=== PATIENT | male | born 1955 | race Caucasian/White ===

== ENCOUNTER 2017-11-20 23:18 | Inpatient (IN) ==
--- NOTE | 2017-11-21 | Emergency Department Note ---
Disposition Clinical Impression: GI bleed, Partial small bowel obstruction, Diverticulitis Disposition: Admitted As Inpatient Condition: Fair General Adult HPI - General Chief complaint: ED GI Bleed Stated complaint: Bloody stool/cramps/abd pain Source: patient Limitations: no limitations Nursing Notes Reviewed: Yes Vital Signs Reviewed: Yes - History of Present Illness Pain Scale: 8 - Related Data Home Medications Medication Instructions Recorded Confirmed Metoprolol Succinate 25 mg PO DAILY 09/05/16 10/17/17 HYDROcodone/Acet 5/325 mg [[place] 1 tab PO Q6H PRN 07/18/17 10/17/17 5-325 mg] [place]-3 Fatty Acids [Fish Oil] 300 mg PO DAILY 07/18/17 10/17/17 Previous Rx's Medication Instructions Recorded Calcium Carbonate [Tums] 500 mg PO TID #90 tab.chew 09/07/15 Ferrous Sulfate [Iron] 1 tab PO DAILY #30 capsule.er 05/07/16 Docusate [Colace] 100 mg PO BID #60 capsule 07/02/16 Hydrocortisone Acetate [Anusol-Hc] 25 mg RC TID #20 supp.rect 07/05/16 Ascorbic Acid [Vitamin C] 500 mg PO DAILY #30 tablet 10/31/16 Cyanocobalamin (Vitamin B-12) 1,000 mcg PO DAILY #30 tablet 10/31/16 [Vitamin B12] Prochlorperazine Maleate 10 mg PO Q6HR PRN #30 tablet 10/31/16 [Compazine] Pantoprazole Sodium [Protonix] 1 tab PO DAILY #90 tablet. 01/21/17 Clotrimazole/Betamethasone Dip 45 gm TP TID #45 cream..g. 04/18/17 [Lotrisone Cream] Allergies Allergy/AdvReac Type Severity Reaction Status Date / Time Penicillins [PCN] Allergy Hives Verified 11/20/17 23:34 Past Medical History - Past Medical History Medical history: Reports: arthritis, cancer, GERD, hypertension Surgical history: Reports: other Psychiatric history: Reports: anxiety, depression - Social History Smoking Status: Never smoker Smokeless Tobacco Status: Yes Alcohol use: Reports: occasionally Drug use: Reports: none Physical Exam - General Limitations: no limitations General appearance: alert Course - Reevaluation(s) Reevaluation #1: Saw patient with Dr. Mathis. This is a 61 year-old male with history of HTN, multiple myeloma, GERD, and diverticulitis. He presents with bilateral lower abdominal pain for the past 3 days and painless rectal bleeding today, associated with nausea and several episodes of nondescript emesis. He has had rectal bleeding in the past due to hemorrhoids, but this seems different. On exam, patient is alert, comfortable-appearing, tachy, BP stable. Mild bilateral lower abdominal tenderness, L>R. DDx includes diverticulitis with bleed, colitis. Less likely appy, obstruction, UGIB. Partial labs: Leukocytosis, Hgb normal. Plan symptom control, PPI, CT abdomen, admit. Time: 00:56 Reevaluation #2: CT showed diverticulitis and ileus (vs. PSBO). Plan IV fluids, Cipro/Flagyl, discuss with surgery, admit to medicine. Time: 02:04 Vital Signs Temperature 97.5 F L 11/20/17 23:30 Pulse Rate 128 11/20/17 23:30 Respiratory Rate 20 11/20/17 23:30 Blood Pressure 110/82 11/20/17 23:30 O2 Sat by Pulse Oximetry 97 11/20/17 23:30 Temperature 97.5 F L 11/20/17 23:30 Pulse Rate 90 11/21/17 03:16 Respiratory Rate 18 11/21/17 05:16 Blood Pressure 113/79 11/21/17 05:16 O2 Sat by Pulse Oximetry 98 11/21/17 03:16 Oxygen Delivery Oxygen Delivery Room Air Medical Decision Making - Lab Data Lab results reviewed: Yes I reviewed the patient's lab results. Result diagrams: 11/20/17 23:52 11/20/17 23:52 Lab Results 11/20/17 11/20/17 11/20/17 Range/Units 23:52 23:52 23:52 WBC 13.2 H (4.3-11.1) K/mcL RBC 5.04 (4.19-5.50) M/mcL Hgb 15.8 (12.9-16.9) g/dL Hct 46.6 (37.5-50.1) % MCV 92.5 (83.0-100.0) fL MCH 31.3 (28.0-33.3) pg MCHC 33.9 (31.6-35.5) g/dL RDW 12.7 (11.5-14.5) % Plt Count 378 (140-400) K/mcL MPV 10.2 (9.4-12.4) fL Immature Gran % 0.3 (0-4) % Seg Neutrophils % 84.9 % Lymphocytes % 7.4 % Monocytes % 7.2 % Eosinophils % 0.0 % Basophils % 0.2 % Neutrophils # 11.2 H (1.6-8.9) K/mcL Lymphocytes # 1.0 (0.6-4.6) K/mcL Monocytes # 1.0 (0.0-1.3) K/mcL Eosinophils # 0.0 (0.0-0.6) K/mcL Basophils # 0.0 (0.0-0.2) K/mcL PT 13.5 H (9.4-12.1) Seconds INR 1.2 APTT 28.9 (26.0-36.0) Seconds Sodium 136 (136-145) mEq/L Potassium 3.8 (3.5-5.1) mEq/L Chloride 98 (98-107) mEq/L Carbon Dioxide 25 (23-29) mEq/L BUN 21 (8-23) mg/dL Creatinine 1.16 (0.70-1.30) mg/dL Est GFR ( Amer) > 60 (> 60) Est GFR (Non-Af Amer) > 60 (> 60) BUN/Creatinine Ratio 18 (6-26) Glucose 156 H (70-105) mg/dL Calculated Osmolality 288 (280-300) Lactic Acid (0.5-2.2) mmol/L Calcium 9.2 (8.6-10.3) mg/dL Total Bilirubin 0.8 (0.3-1.0) mg/dL AST 17 (13-39) Units/L ALT 15 (7-52) Units/L Alkaline Phosphatase 104 (34-104) Units/L Serum Total Protein 9.1 H (6.4-8.9) g/dL Albumin 3.8 (3.5-5.7) g/dL Globulin 5.3 H (2.4-3.5) g/dL Albumin/Globulin Ratio 0.7 L (1.1-2.2) Blood Type Antibody Screen 11/20/17 11/21/17 Range/Units 23:52 02:52 WBC (4.3-11.1) K/mcL RBC (4.19-5.50) M/mcL Hgb (12.9-16.9) g/dL Hct (37.5-50.1) % MCV (83.0-100.0) fL MCH (28.0-33.3) pg MCHC (31.6-35.5) g/dL RDW (11.5-14.5) % Plt Count (140-400) K/mcL MPV (9.4-12.4) fL Immature Gran % (0-4) % Seg Neutrophils % % Lymphocytes % % Monocytes % % Eosinophils % % Basophils % % Neutrophils # (1.6-8.9) K/mcL Lymphocytes # (0.6-4.6) K/mcL Monocytes # (0.0-1.3) K/mcL Eosinophils # (0.0-0.6) K/mcL Basophils # (0.0-0.2) K/mcL PT (9.4-12.1) Seconds INR APTT (26.0-36.0) Seconds Sodium (136-145) mEq/L Potassium (3.5-5.1) mEq/L Chloride (98-107) mEq/L Carbon Dioxide (23-29) mEq/L BUN (8-23) mg/dL Creatinine (0.70-1.30) mg/dL Est GFR ( Amer) (> 60) Est GFR (Non-Af Amer) (> 60) BUN/Creatinine Ratio (6-26) Glucose (70-105) mg/dL Calculated Osmolality (280-300) Lactic Acid 1.0 (0.5-2.2) mmol/L Calcium (8.6-10.3) mg/dL Total Bilirubin (0.3-1.0) mg/dL AST (13-39) Units/L ALT (7-52) Units/L Alkaline Phosphatase (34-104) Units/L Serum Total Protein (6.4-8.9) g/dL Albumin (3.5-5.7) g/dL Globulin (2.4-3.5) g/dL Albumin/Globulin Ratio (1.1-2.2) Blood Type O POSITIVE Antibody Screen NEGATIVE - Radiology Data Radiology results reviewed: Yes I reviewed the patient's radiology results. CT abd/pelvis IMPRESSION: 1. Sigmoid diverticulitis. 2. Enteritis with ileus or partial small bowel obstruction. 3. Urinary bladder wall thickening may be due to cystitis or outlet obstruction. - EKG Data EKG #1 EKG attestation: Yes I reviewed and interpreted this EKG. EKG results narrative: 23:48 - ST at 115.
[2017-11-21 00:13] LABS: Basophils % 0.2 %; Hematocrit 46.6 % (37.5-50.1); Hemoglobin 15.8 g/dL (12.9-16.9); Immature Granulocytes % 0.3 % (0-4); Lymphocytes % 7.4 %; Mean Corpuscular HGB Conc 33.9 g/dL (31.6-35.5); Mean Corpuscular Hemoglobin 31.3 pg (28.0-33.3); Mean Corpuscular Volume 92.5 fL (83.0-100.0); Mean Platelet Volume 10.2 fL (9.4-12.4); Monocytes % 7.2 %; Neutrophils # 11.2 K/mcL (1.6-8.9); Platelet Count 378 K/mcL (140-400); Red Blood Count 5.04 M/mcL (4.19-5.50); Red Cell Distribution Width 12.7 % (11.5-14.5); Segmented Neutrophils % 84.9 %
[2017-11-21 00:19] LABS: INR 1.2; Prothrombin Time 13.5 Seconds (9.4-12.1)
[2017-11-21 00:21] LABS: Activated Partial Thrombo Time 28.9 Seconds (26.0-36.0)
[2017-11-21] MEDS ORDERED: 0.9 % Sodium Chloride 1,000 ML IVC ONE ×2 (00:31→02:04)
[2017-11-21 00:33] LABS: Alanine Aminotransferase 15 Units/L (7-52); Albumin 3.8 g/dL (3.5-5.7); Albumin/Globulin Ratio 0.7 (1.1-2.2); Alkaline Phosphatase 104 Units/L (34-104); Aspartate Amino Transferase 17 Units/L (13-39); BUN/Creatinine Ratio 18 (6-26); Bilirubin,Total 0.8 mg/dL (0.3-1.0); Blood Urea Nitrogen 21 mg/dL (8-23); Calcium 9.2 mg/dL (8.6-10.3); Carbon Dioxide 25 mEq/L (23-29); Chloride 98 mEq/L (98-107); Globulin 5.3 g/dL (2.4-3.5); Glucose 156 mg/dL (70-105); Osmolality,Calculated 288 (280-300); Potassium 3.8 mEq/L (3.5-5.1); Sodium 136 mEq/L (136-145); Total Protein 9.1 g/dL (6.4-8.9); eGFR For African Americans > 60 (> 60); eGFR For Non-African Americans > 60 (> 60)
[2017-11-21] MEDS ORDERED: Pantoprazole 40 MG VIAL IVP ONE (00:42)
[2017-11-21] MEDS ORDERED: *HR* FentaNYL (PF) 100 MCG/2 ML VIAL IVP ONE ×3 (00:42→03:37)
[2017-11-21] MEDS ORDERED: Ondansetron 4 MG/2 ML VIAL IVP PRN (01:00)
--- NOTE | 2017-11-21 01:00 | Emergency Department Note ---
Disposition Clinical Impression: Partial small bowel obstruction, Diverticulitis GI bleed Qualifiers: GI bleed type/associated pathology: unspecified gastrointestinal hemorrhage type Qualified Code(s): K92.2 - Gastrointestinal hemorrhage, unspecified Abdominal pain Qualifiers: Abdominal location: lower abdomen, unspecified Qualified Code(s): R10.30 - Lower abdominal pain, unspecified Nausea & vomiting Qualifiers: Vomiting type: bilious vomiting Qualified Code(s): R11.14 - Bilious vomiting Disposition: Admitted As Inpatient Condition: Fair Referrals: NONE,PCP [Primary Care Provider] - Forms: ED Satisfaction Letter Time of Disposition: 05:41 GI Bleed HPI - General Chief complaint: ED GI Bleed Stated complaint: Bloody stool/cramps/abd pain Time Seen by Provider: 11/21/17 00:30 Source: patient Limitations: no limitations Nursing Notes Reviewed: Yes Vital Signs Reviewed: Yes - History of Present Illness HPI Narrative: 61-year-old male complains of abdominal pain and rectal bleeding that started 3 days ago. Patient states his abdominal pain from 9/10 constant across lower abdomen. Patient states he has had pain all over his abdomen is some point in time or another over the past 3 days. Patient describes sensing the need for bowel movement but sat on the toilet and nothing but bright red blood that was painless came out of his rectum. He states the bleeding stopped on its own. He has had intermittent episodes of hematochezia since initial onset. - Related Data Home Medications Medication Instructions Recorded Confirmed Metoprolol Succinate 25 mg PO DAILY 09/05/16 10/17/17 HYDROcodone/Acet 5/325 mg [[place] 1 tab PO Q6H PRN 07/18/17 10/17/17 5-325 mg] [place]-3 Fatty Acids [Fish Oil] 300 mg PO DAILY 07/18/17 10/17/17 Previous Rx's Medication Instructions Recorded Calcium Carbonate [Tums] 500 mg PO TID #90 tab.chew 09/07/15 Ferrous Sulfate [Iron] 1 tab PO DAILY #30 capsule.er 05/07/16 Docusate [Colace] 100 mg PO BID #60 capsule 07/02/16 Hydrocortisone Acetate [Anusol-Hc] 25 mg RC TID #20 supp.rect 07/05/16 Ascorbic Acid [Vitamin C] 500 mg PO DAILY #30 tablet 03/16/17 Cyanocobalamin (Vitamin B-12) 1,000 mcg PO DAILY #30 tablet 10/31/16 [Vitamin B12] Prochlorperazine Maleate 10 mg PO Q6HR PRN #30 tablet 10/31/16 [Compazine] Pantoprazole Sodium [Protonix] 1 tab PO DAILY #90 tablet. 01/21/17 Clotrimazole/Betamethasone Dip 45 gm TP TID #45 cream..g. 04/18/17 [Lotrisone Cream] Allergies Allergy/AdvReac Type Severity Reaction Status Date / Time Penicillins [PCN] Allergy Hives Verified 11/20/17 23:34 All systems ED: reviewed and negative except as stated. Review of Systems: As Per HPI Constitutional: Denies: fever, chills, weakness Cardiovascular: Denies: chest pain Respiratory: Denies: cough, dyspnea Gastrointestinal: Reports: abdominal pain, nausea, vomiting. Denies: diarrhea Neurological: Denies: weakness Endocrine: Denies: fatigue Past Medical History - Past Medical History Attestation: Yes The following information was validated with the patient. Source: patient, nursing notes reviewed Medical history: Reports: arthritis, cancer, GERD, hypertension Surgical history: Reports: other Psychiatric history: Reports: anxiety, depression - Social History Smoking Status: Never smoker Smokeless Tobacco Status: Yes Alcohol use: Reports: occasionally Drug use: Reports: none Physical Exam Vital Signs Temperature 97.5 F L 11/20/17 23:30 Pulse Rate 128 11/20/17 23:30 Respiratory Rate 20 11/20/17 23:30 Blood Pressure 110/82 11/20/17 23:30 O2 Sat by Pulse Oximetry 97 11/20/17 23:30 Temperature 97.5 F L 11/20/17 23:30 Pulse Rate 100 11/21/17 00:53 Respiratory Rate 18 11/21/17 00:53 Blood Pressure 112/79 11/21/17 00:53 O2 Sat by Pulse Oximetry 95 11/21/17 00:53 Oxygen Delivery Oxygen Delivery Room Air CONSTITUTIONAL: Well-appearing; well-nourished; A&O X 3, in no apparent distress. HEAD: Normocephalic; atraumatic EYES: PERRL, no scleral icterus NOSE: The nose is normal in appearance without rhinorrhea NECK: No JVD or distended neck veins RESP: Normal chest excursion with respiration; breath sounds clear and equal bilaterally; no wheezes, rhonchi, or rales CARD: Regular rhythm, without murmurs, rub or gallop ABD: Mildly distended abdomen but not rigid, tender to palpation across the left lower suprapubic and right lower quadrant. No rebound tenderness, no Rovsing. Hypoactive bowel sounds present. No ecchymosis, no flank bruising. CHEST: No pain with palpation SKIN: Normal for age and race; warm and dry without diaphoresis ; no apparent lesions EXTREMITIES: Pulses are 2 plus and equal times 4 extremities, no peripheral edema or calf muscle pain - General Limitations: no limitations General appearance: alert Course - Reevaluation(s) Reevaluation #1: Hemoccult blood tests positive Time: 00:58 Reevaluation #2: 3 dose of fentanyl for pain, started patient on Cipro and Flagyl. NG tube ordered Time: 02:12 - Consultations Consultation #1: Dr. Jeong of Gen. surgery is on board for if any complications arise during patient's and patient's treatment. Time: 02:20 Vital Signs Temperature 97.5 F L 11/20/17 23:30 Pulse Rate 128 11/20/17 23:30 Respiratory Rate 20 11/20/17 23:30 Blood Pressure 110/82 11/20/17 23:30 O2 Sat by Pulse Oximetry 97 11/20/17 23:30 Temperature 97.5 F L 11/20/17 23:30 Pulse Rate 100 11/21/17 00:53 Respiratory Rate 18 11/21/17 00:53 Blood Pressure 112/79 11/21/17 00:53 O2 Sat by Pulse Oximetry 95 11/21/17 00:53 Oxygen Delivery Oxygen Delivery Room Air GI Bleed - [facility] Narrative Medical decision making narrative: Patient abdominal pain and hematochezia along with nausea and vomiting with copious belching presents with concern for possible bowel obstruction, diverticulitis versus diverticulosis with pain this rectal bleeding also has associated abdominal pain across the lower abdomen. Infectious colitis also a concern. Hemoccult test was positive for gross blood on rectal exam. External and internal hemorrhoids present. External hemorrhoid shows no active bleeding. Patient started on IV normal saline, Protonix 80 mg IV, 80 mg fentanyl IV for pain and 4 mg Zofran IV for nausea. Patient placed nothing by mouth. CT abdomen and pelvis with IV contrast was positive for diverticulitis and associated partial small bowel obstruction. Patient started on 400 mg Cipro IV and 500 mg IV Flagyl. Patient understands and agrees to treatment plan for admission. Dr. Jeong of Gen. surgery consult and is aware of patient's admission to medicine. Dr. Quinonez the hospitalist as accepted patient for admission for continued evaluation and treatment. - Lab Data Lab results reviewed: Yes I reviewed the patient's lab results. Lab results narrative: Short CBC 11/20/17 Range/Units 23:52 WBC 13.2 H (4.3-11.1) K/mcL Hgb 15.8 (12.9-16.9) g/dL Hct 46.6 (37.5-50.1) % Plt Count 378 (140-400) K/mcL Neutrophils # 11.2 H (1.6-8.9) K/mcL BMP 11/20/17 Range/Units 23:52 Sodium 136 (136-145) mEq/L Potassium 3.8 (3.5-5.1) mEq/L Chloride 98 (98-107) mEq/L Carbon Dioxide 25 (23-29) mEq/L BUN 21 (8-23) mg/dL Creatinine 1.16 (0.70-1.30) mg/dL Glucose 156 H (70-105) mg/dL Calcium 9.2 (8.6-10.3) mg/dL Liver Function 11/20/17 Range/Units 23:52 Total Bilirubin 0.8 (0.3-1.0) mg/dL AST 17 (13-39) Units/L ALT 15 (7-52) Units/L Alkaline Phosphatase 104 (34-104) Units/L Albumin 3.8 (3.5-5.7) g/dL Result diagrams: 11/20/17 23:52 11/20/17 23:52 Lab Results 11/20/17 11/20/17 11/20/17 Range/Units 23:52 23:52 23:52 WBC 13.2 H (4.3-11.1) K/mcL RBC 5.04 (4.19-5.50) M/mcL Hgb 15.8 (12.9-16.9) g/dL Hct 46.6 (37.5-50.1) % MCV 92.5 (83.0-100.0) fL MCH 31.3 (28.0-33.3) pg MCHC 33.9 (31.6-35.5) g/dL RDW 12.7 (11.5-14.5) % Plt Count 378 (140-400) K/mcL MPV 10.2 (9.4-12.4) fL Immature Gran % 0.3 (0-4) % Seg Neutrophils % 84.9 % Lymphocytes % 7.4 % Monocytes % 7.2 % Eosinophils % 0.0 % Basophils % 0.2 % Neutrophils # 11.2 H (1.6-8.9) K/mcL Lymphocytes # 1.0 (0.6-4.6) K/mcL Monocytes # 1.0 (0.0-1.3) K/mcL Eosinophils # 0.0 (0.0-0.6) K/mcL Basophils # 0.0 (0.0-0.2) K/mcL PT 13.5 H (9.4-12.1) Seconds INR 1.2 APTT 28.9 (26.0-36.0) Seconds Sodium 136 (136-145) mEq/L Potassium 3.8 (3.5-5.1) mEq/L Chloride 98 (98-107) mEq/L Carbon Dioxide 25 (23-29) mEq/L BUN 21 (8-23) mg/dL Creatinine 1.16 (0.70-1.30) mg/dL Est GFR ( Amer) > 60 (> 60) Est GFR (Non-Af Amer) > 60 (> 60) BUN/Creatinine Ratio 18 (6-26) Glucose 156 H (70-105) mg/dL Calculated Osmolality 288 (280-300) Calcium 9.2 (8.6-10.3) mg/dL Total Bilirubin 0.8 (0.3-1.0) mg/dL AST 17 (13-39) Units/L ALT 15 (7-52) Units/L Alkaline Phosphatase 104 (34-104) Units/L Serum Total Protein 9.1 H (6.4-8.9) g/dL Albumin 3.8 (3.5-5.7) g/dL Globulin 5.3 H (2.4-3.5) g/dL Albumin/Globulin Ratio 0.7 L (1.1-2.2) Blood Type Antibody Screen 11/20/17 Range/Units 23:52 WBC (4.3-11.1) K/mcL RBC (4.19-5.50) M/mcL Hgb (12.9-16.9) g/dL Hct (37.5-50.1) % MCV (83.0-100.0) fL MCH (28.0-33.3) pg MCHC (31.6-35.5) g/dL RDW (11.5-14.5) % Plt Count (140-400) K/mcL MPV (9.4-12.4) fL Immature Gran % (0-4) % Seg Neutrophils % % Lymphocytes % % Monocytes % % Eosinophils % % Basophils % % Neutrophils # (1.6-8.9) K/mcL Lymphocytes # (0.6-4.6) K/mcL Monocytes # (0.0-1.3) K/mcL Eosinophils # (0.0-0.6) K/mcL Basophils # (0.0-0.2) K/mcL PT (9.4-12.1) Seconds INR APTT (26.0-36.0) Seconds Sodium (136-145) mEq/L Potassium (3.5-5.1) mEq/L Chloride (98-107) mEq/L Carbon Dioxide (23-29) mEq/L BUN (8-23) mg/dL Creatinine (0.70-1.30) mg/dL Est GFR ( Amer) (> 60) Est GFR (Non-Af Amer) (> 60) BUN/Creatinine Ratio (6-26) Glucose (70-105) mg/dL Calculated Osmolality (280-300) Calcium (8.6-10.3) mg/dL Total Bilirubin (0.3-1.0) mg/dL AST (13-39) Units/L ALT (7-52) Units/L Alkaline Phosphatase (34-104) Units/L Serum Total Protein (6.4-8.9) g/dL Albumin (3.5-5.7) g/dL Globulin (2.4-3.5) g/dL Albumin/Globulin Ratio (1.1-2.2) Blood Type O POSITIVE Antibody Screen NEGATIVE - Radiology Data Radiology results reviewed: Yes I reviewed the patient's radiology results. Abdomen/Pelvis CT 11/21/17 00:41 IMPRESSION: 1. Sigmoid diverticulitis. 2. Enteritis with ileus or partial small bowel obstruction. 3. Urinary bladder wall thickening may be due to cystitis or outlet obstruction. D/ / Ramón Patricia MD / Ramón Patricia MD Interpreting Provider: Ramón Patricia MD Chest X-Ray 11/21/17 00:41 IMPRESSION: Right basilar atelectasis or pneumonia. D/ / Ramón Patricia MD / Ramón Patricia MD Interpreting Provider: Ramón Patricia MD - EKG Data EKG attestation: Yes I reviewed and interpreted this EKG. EKG results narrative: EKG taken 11/20/2017 at 2348 hrs. shows sinus tachycardia at a rate of 1:15 beats minute with no acute ST elevations, but shows mild ST depression in lateral leads, no QRS widening. No change in compared to previous EKG taken 09/2015.
[2017-11-21] MEDS ORDERED: MetroNIDAZOLE 500 MG/100 ML 500 MG/100 ML BAG IVPB ONE (02:03)
[2017-11-21] MEDS ORDERED: Naloxone 0.4 MG/ML INJ IVP PRN (02:42)
--- NOTE | 2017-11-21 02:50 | Internal Med History&Physical ---
Date of Encounter: 11/21/17 Time of Encounter: 02:47 Internal Medicine - H&P: HPI Chief complaint: Abdominal pain Admitted From: Emergency Dept Plans for Post Hospital Care: Home History of present illness: Mr. Sidhu is a 61 year old male with history of HTN, multiple myeloma, GERD, and diverticulitis who presents with chief complaints of bilateral lower abdominal pain for the past 3 days . The patient is reports associated nausea and multiple episodes of vomiting. He last had by mouth yesterday morning and vomited. He reports bright red blood per rectum. He says since about Friday he was not able to pass gas however over the next few days he started having abdominal pain that felt like cramps in the lower abdomen and eventually spread to throughout the abdomen. He was able to have bowel movements that were small over the last couple days or so although with some blood. Denies any fever, chills, headache, blurry vision, chest pain, shortness of breath, urinary symptoms or neurological symptoms. Upon presentation he was noted to be tachycardic but sinus. Laboratory workup showed mild leukocytosis and mildly elevated creatinine above baseline. Lactic acid was normal. Imaging studies showed sigmoid diverticulitis as well as partial small bowel obstruction versus ileus. The patient was given IV fluids in the ED as well as Cipro and Flagyl before we were called to admit the patient Past Med Surg Social Fam HX - Past Medical History Medical history: arthritis, cancer, GERD, hypertension Psychiatric history: anxiety, depression - Past Surgical History Surgical History: other - Social History Smoking Status: Never smoker Smokeless Tobacco Status: Yes Alcohol use: occasionally Drug use: none - Family History Father Living Status: Hx Family Respiratory Disorders: Yes (smoker, pneumonia) Mother Living Status: Internal Medicine - H&P: Meds Calcium Carbonate [Tums] 500 mg PO TID #90 tab.chew 09/07/15 [Rx] Ferrous Sulfate [Iron] 1 tab PO DAILY #30 capsule.er 05/07/16 [Rx] Docusate [Colace] 100 mg PO BID #60 capsule 07/02/16 [Rx] Hydrocortisone Acetate [Anusol-Hc] 25 mg RC TID #20 supp.rect 07/05/16 [Rx] Metoprolol Succinate 25 mg PO DAILY 09/05/16 [History] Ascorbic Acid [Vitamin C] 500 mg PO DAILY #30 tablet 10/31/16 [Rx] Cyanocobalamin (Vitamin B-12) [Vitamin B12] 1,000 mcg PO DAILY #30 tablet [Rx] Prochlorperazine Maleate [Compazine] 10 mg PO Q6HR PRN #30 tablet 10/31/16 [Rx] Pantoprazole Sodium [Protonix] 1 tab PO DAILY #90 tablet. 01/21/17 [Rx] Clotrimazole/Betamethasone Dip [Lotrisone Cream] 45 gm TP TID #45 cream..g. 09/03 [Rx] HYDROcodone/Acet 5/325 mg [[place] 5-325 mg] 1 tab PO Q6H PRN 07/18/17 [History] [place]-3 Fatty Acids [Fish Oil] 300 mg PO DAILY 07/18/17 [History] 3 Allergy/AdvReac Type Severity Reaction Status Date / Time Penicillins [PCN] Allergy Hives Verified 11/20/17 23:34 All Systems PM: A 10-system review of systems was performed and is negative for pertinent findings except as documented above in the HPI. Review of systems: All systems reviewed are negative except for as mentioned above - Constitutional Vitals: Temp Pulse Resp BP Pulse Ox 97.5 F L 100 18 112/79 95 11/20/17 23:30 11/21/17 00:53 11/21/17 00:53 11/21/17 00:53 11/21/17 00:53 Exam: GEN: NAD HEENT: AT, NC, No cyanosis, oral mucosa is moist, No JVD Lymphatics: No lymphadenoapthy Eyes: Extrocular muscles intact, anicteric CVS:RRR. S1, S2, No m/r/g RESP: CTAB ABD: lower abdominal tenderness mostly appreciated on the left lower abdomen and right lower abdomen, distended, positive bowel sounds EXT: No edema, No rashes, 2+ DP NEURO: Nonfocal, CN II-XII intact, No focal motor or sensory deficits Psych: Cooperative, Not anxious or depressed Internal Med - H&P Results - Labs CBC & Chem 7: 11/20/17 23:52 11/20/17 23:52 Labs: Short CBC 11/20/17 Range/Units 23:52 WBC 13.2 H (4.3-11.1) K/mcL Hgb 15.8 (12.9-16.9) g/dL Hct 46.6 (37.5-50.1) % Plt Count 378 (140-400) K/mcL Neutrophils # 11.2 H (1.6-8.9) K/mcL BMP 11/20/17 23:52 Sodium 136 Potassium 3.8 Chloride 98 Carbon Dioxide 25 BUN 21 Creatinine 1.16 Glucose 156 H Calcium 9.2 Liver Function 11/20/17 Range/Units 23:52 Total Bilirubin 0.8 (0.3-1.0) mg/dL AST 17 (13-39) Units/L ALT 15 (7-52) Units/L Alkaline Phosphatase 104 (34-104) Units/L Albumin 3.8 (3.5-5.7) g/dL - Impressions ITS Impressions Abdomen/Pelvis CT 11/21/17 00:41 IMPRESSION: 1. Sigmoid diverticulitis. 2. Enteritis with ileus or partial small bowel obstruction. 3. Urinary bladder wall thickening may be due to cystitis or outlet obstruction. D/ / Ramón Patricia MD / Ramón Patricia MD Interpreting Provider: Ramón Patricia MD Chest X-Ray 11/21/17 00:41 IMPRESSION: Right basilar atelectasis or pneumonia. D/ / Ramón Patricia MD / Ramón Patricia MD Interpreting Provider: Ramón Patricia MD - Assessment and plan (1) Diverticulitis Current Visit: Yes Status: Acute Assessment and plan: symptomatic treatment. NPO. Anti-emetics. Cipro/flagyl. pain control. (2) JALYN (acute kidney injury) Current Visit: Yes Status: Acute Assessment and plan: Likely prerenal from fluid loss. Give IVF in ED. c/w NS 125cc/hr. labs in am. avoid nephrotoxins (3) Partial small bowel obstruction Current Visit: Yes Status: Acute Assessment and plan: No need for NGT for now. No active vomiting. Patient is passing stool. NPO. IVF. Anti-emetics. Gen surgery c/s in ED. Pain control (4) Hematochezia Current Visit: No Status: Acute Assessment and plan: Likely hemorrhoidal bleed. H/H stable. will monitor for now. Can't get colonoscopy now with acute diverticulitis. (5) Multiple myeloma Current Visit: No Status: Acute Assessment and plan: f/u with oncology. Qualifiers: Multiple myeloma remission status: unspecified Qualified Code(s): C90.00 - Multiple myeloma not having achieved remission (6) DVT prophylaxis Current Visit: Yes Status: Acute Assessment and plan: scds - Time Spent With Patient Total time spent is greater than 50% in coordination of care (as documented) at patient's floor/unit and/or counseling patient:
[2017-11-21] MEDS: *HR* Heparin 5,000 UNIT/ML VIAL SQ SCH ×3 (06:31→21:28)
[2017-11-21] MEDS: Pantoprazole 40 MG VIAL IVP SCH (06:35)
[2017-11-21] MEDS: Azithromycin 500 MG in D5% in Water 250 ML IVPB SCH (09:30)
[2017-11-21] MEDS: *HR* HYDROcodone/Acet 5/325 mg TABLET PO PRN ×2 (09:30→17:38)
[2017-11-21] MEDS: cefTRIAXone 1,000 MG in Water for inj. (sterile) 20 ML 10 ML IVP SCH (09:31)
[2017-11-21] MEDS: 0.9 % Sodium Chloride 1,000 ML IVC SCH ×3 (09:32→19:11)
--- NOTE | 2017-11-21 09:35 | General Surgery Consult Note ---
<Val Valle-My - Last Filed: 11/21/17 09:32> Date of Encounter: 11/21/17 Time of Encounter: 09:00 Assessment and Plan (1) Diverticulitis Current Visit: Yes Status: Acute Labs are unremarkable except for a leukocytosis with a white blood count of 13.2. Patient is afebrile and appears in no acute distress. CT of the abdomen and pelvis on 11/21/2017 showed sigmoid diverticulitis, enteritis with ileus or partial small bowel obstruction, and urinary bladder wall thickening may be due to cystitis or outlet obstruction. Chest x-ray showed Right basilar atelectasis or pneumonia. Plan: no surgical intervention at this time. Recommends continue IV fluids Recommends bowel rest Recommends the following IV antibiotics: Flagyl and ciprofloxacin Recommends interval colonoscopy within 6 to 8 weeks encourage IS use 10 times per hour supportive care and pain control out of the bed at least 3 times a day serial abdominal exams continue to monitor the patient closely History of Present Illness Consult date: 11/21/17 Reason for consult: other (Partial small bowel obstruction and diverticulitis) History of present illness: Mr. Sidhu is a 61 year old male with history of HTN, multiple myeloma, and diverticulitis who presented to the ED with chief complaints of bilateral lower abdominal pain for the past 3 days. The patient reports associated nausea, multiple episodes of vomiting, painless rectal bleeding due to his hemorrhoids, and bloody loose stools. The patient describes the bilateral abdominal pain as a constant and sharp pain that he rates 8 out of 10. He denies any radiation of the pain. The patient admits the abdominal pain feels like his previous diverticulitis. Surgery was consulted for further recommendations for his partial small bowel obstruction and diverticulitis. The patient still admits bilateral lower abdominal pain that he describes as intermittent and sharp. He rates the pain 8 out of 10 but denies any radiation. The patient admits passing flatus and his last bowel movement was right before my exam. He describes the bowel movement as loose stools with blood. Patient admit he has chills but no fevers. The patient states he had a colonoscopy and EGD completed within the last 2 years. Patient stated that he has Michael's esophagus on his EGD. Patient denies any surgical history. The patient denies any headaches, vision changes, near syncope, chest pain, shortness of breath, difficulty breathing, urinary symptoms, nausea, vomiting, and any weaknesses. Patient has no other concerns at this time. Past Med Surg Social Fam HX - Past Medical History Medical history: arthritis, cancer, GERD, hypertension Psychiatric history: anxiety, depression - Past Surgical History Surgical History: other - Social History Smoking Status: Never smoker Smokeless Tobacco Status: Yes Alcohol use: occasionally Drug use: none - Family History Father Living Status: Hx Family Respiratory Disorders: Yes Mother Living Status: Hx Family Respiratory Disorders: Yes Medications and Allergies Calcium Carbonate [Tums] 500 mg PO TID #90 tab.chew 09/07/15 [Rx] Metoprolol Succinate 25 mg PO DAILY 09/05/16 [History] Ascorbic Acid [Vitamin C] 500 mg PO DAILY #30 tablet 10/31/16 [Rx] Prochlorperazine Maleate [Compazine] 10 mg PO Q6HR PRN #30 tablet 10/31/16 [Rx] Pantoprazole Sodium [Protonix] 1 tab PO DAILY #90 tablet.dr 01/21/17 [Rx] HYDROcodone/Acet 5/325 mg [[place] 5-325 mg] 1 tab PO Q6H PRN 07/18/17 [History] [place]-3 Fatty Acids [Fish Oil] 300 mg PO DAILY 07/18/17 [History] Cyanocobalamin (Vitamin B-12) [Vitamin B12] 1,000 mcg PO Q48H 11/21/17 [History] Docusate [Colace] 100 mg PO BID PRN 11/21/17 [History] Ferrous Sulfate [Iron] 1 tab PO Q48H 11/21/17 [History] 3 Allergy/AdvReac Type Severity Reaction Status Date / Time Penicillins [PCN] Allergy Hives Verified 11/20/17 23:34 Review of Systems All systems PM: The remainder of the systems were reviewed and are negative - Constitutional as per HPI General Surgery Exam Initial Vital Signs Temp Pulse Resp BP Pulse Ox 97.5 F L 128 20 110/82 97 11/20/17 23:30 11/20/17 23:30 11/20/17 23:30 11/20/17 23:30 11/20/17 23:30 - General physical appearance well developed, well nourished, no distress - Eyes PERRL, normal ocular movement - ENT normal mucosa - Neck trachea midline - Respiratory normal expansion, normal respiratory effort, clear to auscultation - Cardiovascular Cardiovascular exam: Present: RRR, no murmurs/rubs/gallops - Abdomen Abdomen general surgery: Present: bowel sounds present, soft, tender ( Tenderness to palpation in the epigastric region). Absent: guarding, rebound, rigid Abdominal Tenderness: Present: epigastic - Integumentary Integumentary general surgery: Present: warm and dry - Neurologic Present: CN 2-12 grossly intact - Musculoskeletal Present: normal gait - Psychiatric Psychiatric general surgery: Present: A&Ox3, appropriate, speech is normal, memory intact Exam Initial Vital Signs Temp Pulse Resp BP Pulse Ox 97.5 F L 128 20 110/82 97 11/20/17 23:30 11/20/17 23:30 11/20/17 23:30 11/20/17 23:30 11/20/17 23:30 Results - Labs 11/20/17 23:52 11/20/17 23:52 Abnormal lab results WBC 13.2 K/mcL (4.3-11.1) H 11/20/17 23:52 Neutrophils # 11.2 K/mcL (1.6-8.9) H 11/20/17 23:52 PT 13.5 Seconds (9.4-12.1) H 11/20/17 23:52 Glucose 156 mg/dL (70-105) H 11/20/17 23:52 Serum Total Protein 9.1 g/dL (6.4-8.9) H 11/20/17 23:52 Globulin 5.3 g/dL (2.4-3.5) H 11/20/17 23:52 Albumin/Globulin Ratio 0.7 (1.1-2.2) L 11/20/17 23:52 All other labs normal. Consult Discharge Plan - Plan Referrals: Carlton Arce DO [Non-Partnered Physician] - <Freddy Jeong E - Last Filed: 11/22/17 11:50> Date of Encounter: 11/22/17 Review of Systems All systems PM: The remainder of the systems were reviewed and are negative General Surgery Exam Initial Vital Signs Temp Pulse Resp BP Pulse Ox 97.5 F L 128 20 110/82 97 11/20/17 23:30 11/20/17 23:30 11/20/17 23:30 11/20/17 23:30 11/20/17 23:30 Exam Initial Vital Signs Temp Pulse Resp BP Pulse Ox 97.5 F L 128 20 110/82 97 11/20/17 23:30 11/20/17 23:30 11/20/17 23:30 11/20/17 23:30 11/20/17 23:30 Results - Labs 11/22/17 05:41 11/22/17 05:41 Abnormal lab results RBC 3.88 M/mcL (4.19-5.50) L 11/22/17 05:41 Hgb 12.1 g/dL (12.9-16.9) L D 11/22/17 05:41 Hct 37.2 % (37.5-50.1) L 11/22/17 05:41 PT 13.5 Seconds (9.4-12.1) H 11/20/17 23:52 Chloride 109 mEq/L (98-107) H 11/22/17 05:41 POC Glucose 126 mg/dL (70-99) H 11/22/17 10:50 Calcium 7.6 mg/dL (8.6-10.3) L 11/22/17 05:41 Serum Total Protein 9.1 g/dL (6.4-8.9) H 11/20/17 23:52 Globulin 5.3 g/dL (2.4-3.5) H 11/20/17 23:52 Albumin/Globulin Ratio 0.7 (1.1-2.2) L 11/20/17 23:52 Diabetes panel 11/22/17 Range/Units 05:41 Sodium 141 (136-145) mEq/L Potassium 3.6 (3.5-5.1) mEq/L Chloride 109 H (98-107) mEq/L Carbon Dioxide 23 (23-29) mEq/L BUN 12 (8-23) mg/dL Creatinine 0.73 (0.70-1.30) mg/dL Glucose 97 (70-105) mg/dL Calcium 7.6 L (8.6-10.3) mg/dL Calcium panel 11/22/17 Range/Units 05:41 Calcium 7.6 L (8.6-10.3) mg/dL Pituitary panel 11/22/17 Range/Units 05:41 Sodium 141 (136-145) mEq/L Potassium 3.6 (3.5-5.1) mEq/L Chloride 109 H (98-107) mEq/L Carbon Dioxide 23 (23-29) mEq/L BUN 12 (8-23) mg/dL Creatinine 0.73 (0.70-1.30) mg/dL Glucose 97 (70-105) mg/dL Calcium 7.6 L (8.6-10.3) mg/dL Adrenal panel 11/22/17 Range/Units 05:41 Sodium 141 (136-145) mEq/L Potassium 3.6 (3.5-5.1) mEq/L Chloride 109 H (98-107) mEq/L Carbon Dioxide 23 (23-29) mEq/L BUN 12 (8-23) mg/dL Creatinine 0.73 (0.70-1.30) mg/dL Glucose 97 (70-105) mg/dL Calcium 7.6 L (8.6-10.3) mg/dL All other labs normal. - Attending Attestation I examined this patient and my medical decision-making was reviewed with the Resident Physician. I agree with the documented findings, disposition and treatment plan as described except to the extent set forth below.
[2017-11-21] MEDS: MetroNIDAZOLE 500 MG/100 ML 500 MG/100 ML BAG IVPB SCH ×2 (11:37→19:12)
--- NOTE | 2017-11-21 12:49 | Event Note ---
Date of Encounter: 11/21/17 Time of Encounter: 12:47 Seen and examined at the bedside Admitted and being managed for RLL PNA, Diverticulitis and enteritis Still having mild abdominal pain NO n/v, no BM as yet Surgery is following-no intervention Physical exam is unremarkable, abdomen is benign, chest is clear D/C cipro, changed to cef-for PNA coverage Continue Flagyl/Azithro Continue other management
[2017-11-21] MEDS: Ondansetron 4 MG/2 ML VIAL IVP PRN (18:43)
[2017-11-22] MEDS: Ondansetron 4 MG/2 ML VIAL IVP PRN (00:49)
[2017-11-22] MEDS: MetroNIDAZOLE 500 MG/100 ML 500 MG/100 ML BAG IVPB SCH ×3 (02:59→20:21)
[2017-11-22] MEDS: 0.9 % Sodium Chloride 1,000 ML IVC SCH (03:00)
[2017-11-22] MEDS ORDERED: Prochlorperazine 10 MG/2 ML VIAL IVP PRN (04:30)
[2017-11-22] MEDS: Pantoprazole 40 MG VIAL IVP SCH (05:32)
[2017-11-22] MEDS: *HR* Heparin 5,000 UNIT/ML VIAL SQ SCH ×3 (05:32→22:15)
[2017-11-22 05:58] LABS: Basophils % 0.2 %; Eosinophils # 0.1 K/mcL (0.0-0.6); Hematocrit 37.2 % (37.5-50.1); Immature Granulocytes % 0.2 % (0-4); Lymphocytes % 10.9 %; Mean Corpuscular HGB Conc 32.5 g/dL (31.6-35.5); Mean Corpuscular Hemoglobin 31.2 pg (28.0-33.3); Mean Corpuscular Volume 95.9 fL (83.0-100.0); Mean Platelet Volume 9.8 fL (9.4-12.4); Monocytes # 0.4 K/mcL (0.0-1.3); Monocytes % 7.8 %; Platelet Count 204 K/mcL (140-400); Red Blood Count 3.88 M/mcL (4.19-5.50); Segmented Neutrophils % 79.9 %
[2017-11-22 06:00] LABS: Hemoglobin 12.1 g/dL (12.9-16.9); Lymphocytes # 0.6 K/mcL (0.6-4.6)
[2017-11-22 06:21] LABS: BUN/Creatinine Ratio 16 (6-26); Blood Urea Nitrogen 12 mg/dL (8-23); Calcium 7.6 mg/dL (8.6-10.3); Carbon Dioxide 23 mEq/L (23-29); Chloride 109 mEq/L (98-107); Glucose 97 mg/dL (70-105); Osmolality,Calculated 292 (280-300); Potassium 3.6 mEq/L (3.5-5.1); Sodium 141 mEq/L (136-145); eGFR For African Americans > 60 (> 60); eGFR For Non-African Americans > 60 (> 60)
[2017-11-22] MEDS: cefTRIAXone 1,000 MG in Water for inj. (sterile) 20 ML 10 ML IVP SCH (09:17)
[2017-11-22] MEDS: Metoprolol XL (24 HR) Succ 25 MG TAB.ER.24H PO SCH (09:17)
[2017-11-22] MEDS: Azithromycin 500 MG in D5% in Water 250 ML IVPB SCH (09:18)
[2017-11-22] MEDS: *HR* HYDROcodone/Acet 5/325 mg TABLET PO PRN ×2 (09:32→20:20)
--- NOTE | 2017-11-22 12:06 | General Surgery Progress Note ---
Date of Encounter: 11/22/17 Time of Encounter: 12:04 - Assessment and Plan (1) Diverticulitis Current Visit: Yes Status: Acute Plan for IV fluids and antibiotics. He should not receive any significant meal intake until his pain is mostly under control. We will start liquids as tolerated today. I think since this is his second hospitalization it would be reasonable to schedule a resection at approximately 8-10 weeks from now. I have discussed this with the patient he is in agreement. Subjective Patient reports: other (This is a 61-year-old male with his second hospitalization for diverticulitis. He states he feels much better than he did 3 days ago. However currently he does not have much appetite. He is thirsty. He states his pain is somewhat diffuse but mild.) Objective Vital Signs - Last 8 Hours Temp Pulse Resp BP Pulse Ox 11/22/17 10:49 97.6 F 84 14 113/72 95 11/22/17 07:19 98.1 F 89 18 119/67 96 11/22/17 04:31 98.0 F 100 14 129/80 95 Intake and Output 11/21/17 11/22/17 11/22/17 23:59 07:59 15:59 Intake Total 1100 / 1100 1100 / 1100 760 / 760 Output Total 0 / 0 0 / 0 151 / 151 Balance 1100 / 1100 1100 / 1100 609 / 609 Intake: IV Fluids 1100 / 1100 1100 / 1100 760 / 760 0.9 % Sodium Chloride 1,000 ML 1000 / 1000 1000 / 1000 500 / 500 @ 125 mls/hr IVC .Q8H [facility] Rx#: [id number] Rocephin 1,000 MG In Water for inj. (sterile) 10 ML @ 300 mls/ hr IVP DAILY JUAN Rx#:[id number] Zithromax 500 mg In Dextrose 5% 250 / 250 250 ML @ 252 mls/hr IVPB Q24H [facility] Rx#:[id number] Flagyl Premix 500 MG/100 ML 500 100 / 100 100 / 100 mg In 100 ml @ 100 mls/hr IVPB Q8H J[facility] Rx#:[id number] Oral 0 / 0 0 / 0 0 / 0 Output: Urine 0 / 0 0 / 0 150 / 150 Right Nephrostomy Other: Meal NPO NPO NPO Percent of Meal Consumed 0% 0% 0% Stool Size Small Small Stool Consistency loose loose soft Stool Color Brown # Voids 1 # Bowel Movements 1 1 Weight 87.362 kg Blood Glucose* 95 87 126 Patient Weight 11/22/17 23:59 Weight 87.362 kg - General physical appearance well developed, well nourished - Eyes PERRL - ENT normal mucosa - Neck Neck exam: trachea midline - Respiratory normal expansion - Abdomen Abdomen: Present: bowel sounds present Abdominal Tenderness: diffusely - Neurologic CN 2-12 grossly intact, normal sensation - Labs 11/22/17 05:41 11/22/17 05:41 Diabetes panel 11/22/17 Range/Units 05:41 Sodium 141 (136-145) mEq/L Potassium 3.6 (3.5-5.1) mEq/L Chloride 109 H (98-107) mEq/L Carbon Dioxide 23 (23-29) mEq/L BUN 12 (8-23) mg/dL Creatinine 0.73 (0.70-1.30) mg/dL Glucose 97 (70-105) mg/dL Calcium 7.6 L (8.6-10.3) mg/dL Calcium panel 11/22/17 Range/Units 05:41 Calcium 7.6 L (8.6-10.3) mg/dL Pituitary panel 11/22/17 Range/Units 05:41 Sodium 141 (136-145) mEq/L Potassium 3.6 (3.5-5.1) mEq/L Chloride 109 H (98-107) mEq/L Carbon Dioxide 23 (23-29) mEq/L BUN 12 (8-23) mg/dL Creatinine 0.73 (0.70-1.30) mg/dL Glucose 97 (70-105) mg/dL Calcium 7.6 L (8.6-10.3) mg/dL Adrenal panel 11/22/17 Range/Units 05:41 Sodium 141 (136-145) mEq/L Potassium 3.6 (3.5-5.1) mEq/L Chloride 109 H (98-107) mEq/L Carbon Dioxide 23 (23-29) mEq/L BUN 12 (8-23) mg/dL Creatinine 0.73 (0.70-1.30) mg/dL Glucose 97 (70-105) mg/dL Calcium 7.6 L (8.6-10.3) mg/dL Consult Discharge Plan - Plan Referrals: Carlton Arce, [Non-Partnered Physician] -
--- NOTE | 2017-11-22 13:12 | Electrocardiograph Report ---
[place] [id number] Test Date: 2017-11-20 Pat Name: Jordi Sidhu Department: 102 Room: 3A33 Gender: M [employer] Architect: Jacqueline : [id number] Requested By: Salomón Mathis Order Number: [id number] Reading MD: Debora Lewis Measurements Intervals [place] Rate: 115 P: 10 SC: 129 QRS: 5 QRSD: 90 T: 49 QT: 312 QTc: 380 Interpretive Statements SINUS TACHYCARDIA ABNORMAL RHYTHM ECG Electronically Signed On 11-22-2017 13:10:41 EDT by Debora Lewis
--- NOTE | 2017-11-22 13:37 | Internal Med Progress Note ---
Date of Encounter: 11/22/17 Time of Encounter: 13:35 - Assessment and plan (1) Hematochezia Current Visit: Yes Status: Acute Assessment and plan: Likely hemorrhoidal bleed. H/H stable. will monitor for now. Can't get colonoscopy now with acute diverticulitis. (2) Multiple myeloma Current Visit: Yes Status: Chronic Assessment and plan: f/u with oncology. Qualifiers: Multiple myeloma remission status: unspecified Qualified Code(s): C90.00 - Multiple myeloma not having achieved remission (3) Partial small bowel obstruction Current Visit: Yes Status: Acute Assessment and plan: Having BM Pain improved Has BS Clear liquids as tolerated Surgery is following (4) Diverticulitis Current Visit: Yes Status: Acute Assessment and plan: Clear liquids as toelrated Continue cef and flagyl Surgery is following recommendations noted (5) JALYN (acute kidney injury) Current Visit: Yes Status: Resolved Assessment and plan: Likely prerenal from fluid loss. Resolved with IVF (6) DVT prophylaxis Current Visit: Yes Status: Acute Assessment and plan: scds (7) Pneumonia Current Visit: Yes Status: Acute Assessment and plan: RLL PNA by Imaging patient states hx of choking during vomitng COntinue ceftriaxone-day 2 Continue FlagylDay 2 No O2 requirements Continue to monitor Qualifiers: Pneumonia type: aspiration pneumonia Aspiration pneumonia type: unspecified Laterality: right Lung location: unspecified part of lung Qualified Code(s): J69.0 - Pneumonitis due to inhalation of food and vomit - Time Spent With Patient Total time spent is greater than 50% in coordination of care (as documented) at patient's floor/unit and/or counseling patient: - Subjective Interval history: Seen and examined at bedside Being managed for acute diverticulitis and enteritis. Patient states abdominal pain has improved. Per surgery, patient can have clear liquid diet. Abdomen is benign on exam. - Constitutional Vitals: Temp Pulse Resp BP Pulse Ox 97.6 F 84 14 113/72 95 11/22/17 10:49 11/22/17 10:49 11/22/17 10:49 11/22/17 10:49 11/22/17 10:49 General appearance: Present: A&O X 3, pleasant, no acute distress - Head Head exam: Present: atraumatic, normocephalic - Eye Eye exam: Present: PERRL, conjuntiva pink, sclera anicteric Pupils: Present: PERRL - Neck Neck exam general surgery: Present: supple, trachea midline. Absent: lymphadenopathy - Respiratory Respiratory exam: Present: CTAB. Absent: accessory muscle use, rales, rhonchi, wheezes - Cardiovascular Cardiovascular exam: Present: RRR, +S1, +S2. Absent: diastolic murmur, gallop, rubs, systolic murmur - GI/Abdominal GI/Abdominal exam: Present: normal bowel sounds, soft, no peritoneal signs. Absent: distended, tenderness - Extremities Exam Extremities exam: Present: warm, radial pulses palpable and symmetrical. Absent : calf tenderness, cyanotic, pedal edema - Neurological Exam Neurological exam: Present: alert, CN II-XII intact, oriented X3, no focal deficits. Absent: pronater drift, facial droop, speech deficit - Skin Skin exam: Present: dry, intact Internal Medicine: Result - Labs CBC & Chem 7: 11/22/17 05:41 11/22/17 05:41 Labs: Short CBC 11/22/17 Range/Units 05:41 WBC 5.0 D (4.3-11.1) K/mcL Hgb 12.1 L D (12.9-16.9) g/dL Hct 37.2 L (37.5-50.1) % Plt Count 204 (140-400) K/mcL Neutrophils # 4.0 (1.6-8.9) K/mcL BMP 11/22/17 05:41 Sodium 141 Potassium 3.6 Chloride 109 H Carbon Dioxide 23 BUN 12 Creatinine 0.73 Glucose 97 Calcium 7.6 L - ABG Interpretation ABG results: PT/INR, D-dimer PT 13.5 Seconds (9.4-12.1) H 11/20/17 23:52 Consult Discharge Plan - Plan Referrals: Carlton Arce DO [Non-Partnered Physician] -
[2017-11-23] MEDS: MetroNIDAZOLE 500 MG/100 ML 500 MG/100 ML BAG IVPB SCH ×2 (02:50→10:25)
[2017-11-23] MEDS: *HR* HYDROcodone/Acet 5/325 mg TABLET PO PRN ×4 (03:04→21:21)
[2017-11-23] MEDS: Pantoprazole 40 MG VIAL IVP SCH (05:53)
[2017-11-23] MEDS: *HR* Heparin 5,000 UNIT/ML VIAL SQ SCH ×3 (06:27→21:21)
[2017-11-23] MEDS: Metoprolol XL (24 HR) Succ 25 MG TAB.ER.24H PO SCH (09:06)
[2017-11-23] MEDS: cefTRIAXone 1,000 MG in Water for inj. (sterile) 20 ML 10 ML IVP SCH (09:07)
[2017-11-23] MEDS: Azithromycin 500 MG in D5% in Water 250 ML IVPB SCH (09:07)
--- NOTE | 2017-11-23 11:25 | General Surgery Progress Note ---
Date of Encounter: 11/23/17 Time of Encounter: 08:35 - Assessment and Plan (1) Diverticulitis Current Visit: Yes Status: Acute Overall condition much improved with marked decrease in pain and normalization of his white blood cell count. He may be transitioned to oral antibiotics and given dietary advancement this point. Dr. Jeong will see him as an outpatient to discuss surgical options for treatment of his diverticular disease Subjective Narrative: The patient feels better and his pain is improving. His white blood cell count has normalized to 5000. The amount of left lower quadrant pain is minimal. This is his second episode of hospitalization for diverticulitis and he will see Dr. Jeong for possible sigmoid colon resection as an outpatient. Today he is hungry I think it is reasonable to advance his diet. He may also be treated with oral antibiotics at this point. Overall condition is much improved Objective Vital Signs - Last 8 Hours Temp Pulse Resp BP Pulse Ox 11/23/17 10:53 97.8 F 72 18 114/67 95 11/23/17 07:09 97.9 F 69 18 115/65 95 Intake and Output 11/22/17 11/23/17 11/23/17 23:59 07:59 15:59 Intake Total 640 / 640 800 / 800 380 / 380 Output Total 200 / 200 150 / 150 Balance 440 / 440 650 / 650 380 / 380 Intake: IV Fluids 100 / 100 100 / 100 260 / 260 Rocephin 1,000 MG In Water for 10 / 10 inj. (sterile) 10 ML @ 300 mls/ hr IVP DAILY [facility] Rx#:[id number] Zithromax 500 mg In Dextrose 5% 250 / 250 250 ML @ 252 mls/hr IVPB Q24H [facility] Rx#:[id number] Flagyl Premix 500 MG/100 ML 500 100 / 100 100 / 100 mg In 100 ml @ 100 mls/hr IVPB Q8H [facility] Rx#:[id number] Oral 540 / 540 700 / 700 120 / 120 Output: Urine 200 / 200 150 / 150 Other: Meal Clears Breakfast # Voids 1 1 1 # Bowel Movements 1 Weight 81.647 kg Patient Weight 11/23/17 23:59 Weight 81.647 kg - General physical appearance well developed, well nourished - Respiratory normal expansion, normal respiratory effort, clear to percussion, clear to auscultation - Cardiovascular Cardiovascular exam: Present: RRR, no murmurs/rubs/gallops - Abdomen Abdomen: Present: bowel sounds present, soft, non tender - Neurologic normal coordination, normal sensation - Psychiatric oriented to time, oriented to person, oriented to place, speech is normal, memory intact - Labs 11/22/17 05:41 11/22/17 05:41 - VTE Documentation of Mechanical Device: Intermittent pneumatic compression device Consult Discharge Plan - Plan Referrals: Carlton Arce DO [Non-Partnered Physician] -
--- NOTE | 2017-11-23 12:36 | Internal Med Progress Note ---
Date of Encounter: 11/23/17 Time of Encounter: 11:15 - Assessment and plan (1) Hematochezia Current Visit: Yes Status: Acute Assessment and plan: Likely hemorrhoidal bleed. Also possible diverticular bleed H/H stable continue to monitor (2) Multiple myeloma Current Visit: Yes Status: Chronic Assessment and plan: f/u with oncology. Qualifiers: Multiple myeloma remission status: unspecified Qualified Code(s): C90.00 - Multiple myeloma not having achieved remission (3) Partial small bowel obstruction Current Visit: Yes Status: Acute Assessment and plan: Having BM Pain improved Has BS Surgery is following-advance diet as tolerated (4) Diverticulitis Current Visit: Yes Status: Acute Assessment and plan: Clear liquids as tolerated, advance diet Continue cef and flagyl Surgery is following recommendations noted-for evaluation for sigmoid colon resection as out-patient with Dr. hoffman (5) JALYN (acute kidney injury) Current Visit: Yes Status: Resolved Assessment and plan: Likely prerenal from fluid loss. Resolved with IVF (6) DVT prophylaxis Current Visit: Yes Status: Acute Assessment and plan: scds (7) Pneumonia Current Visit: Yes Status: Acute Assessment and plan: RLL PNA by Imaging patient states hx of choking during vomiting COntinue ceftriaxone and azithromycin-day 3 Continue FlagylDay 3 No O2 requirements Continue to monitor Qualifiers: Pneumonia type: aspiration pneumonia Aspiration pneumonia type: unspecified Laterality: right Lung location: unspecified part of lung Qualified Code(s): J69.0 - Pneumonitis due to inhalation of food and vomit - Time Spent With Patient Total time spent is greater than 50% in coordination of care (as documented) at patient's floor/unit and/or counseling patient: - Subjective Interval history: Seen and examined at bedside Being managed for acute diverticulitis and enteritis. Patient states abdominal pain has improved. Per surgery, patient can have clear liquid diet. Abdomen is benign on exam. - Constitutional Vitals: Temp Pulse Resp BP Pulse Ox 97.8 F 72 18 114/67 95 11/23/17 10:53 11/23/17 10:53 11/23/17 10:53 11/23/17 10:53 11/23/17 10:53 General appearance: Present: A&O X 3, pleasant, no acute distress - Head Head exam: Present: atraumatic, normocephalic - Eye Eye exam: Present: PERRL, conjuntiva pink, sclera anicteric Pupils: Present: PERRL - Neck Neck exam general surgery: Present: supple, trachea midline. Absent: lymphadenopathy - Respiratory Respiratory exam: Present: CTAB. Absent: accessory muscle use, rales, rhonchi, wheezes - Cardiovascular Cardiovascular exam: Present: RRR, +S1, +S2. Absent: diastolic murmur, gallop, rubs, systolic murmur - GI/Abdominal GI/Abdominal exam: Present: normal bowel sounds, soft, no peritoneal signs. Absent: distended, tenderness - Extremities Exam Extremities exam: Present: warm, radial pulses palpable and symmetrical. Absent : calf tenderness, cyanotic, pedal edema - Neurological Exam Neurological exam: Present: alert, CN II-XII intact, oriented X3, no focal deficits. Absent: pronater drift, facial droop, speech deficit - Skin Skin exam: Present: dry, intact Internal Medicine: Result - Labs CBC & Chem 7: 11/22/17 05:41 11/22/17 05:41 - ABG Interpretation ABG results: PT/INR, D-dimer PT 13.5 Seconds (9.4-12.1) H 11/20/17 23:52 - VTE Documentation of Mechanical Device: Intermittent pneumatic compression device Consult Discharge Plan - Plan Referrals: Carlton Arce DO [Non-Partnered Physician] -
[2017-11-23] MEDS: metroNIDAZOLE 500 MG TABLET PO SCH ×2 (15:19→21:21)
[2017-11-23] MEDS: Ondansetron 4 MG/2 ML VIAL IVP PRN (19:13)
[2017-11-23] MEDS: Cefdinir 300 MG CAPSULE PO SCH (21:21)
[2017-11-24] MEDS: *HR* Heparin 5,000 UNIT/ML VIAL SQ SCH (04:24)
[2017-11-24] MEDS: Pantoprazole 40 MG VIAL IVP SCH (05:41)
[2017-11-24] MEDS: Cefdinir 300 MG CAPSULE PO SCH (08:45)
[2017-11-24] MEDS: *HR* HYDROcodone/Acet 5/325 mg TABLET PO PRN (08:45)
[2017-11-24] MEDS: metroNIDAZOLE 500 MG TABLET PO SCH (08:45)
[2017-11-24] MEDS: Ondansetron 4 MG/2 ML VIAL IVP PRN (08:45)
[2017-11-24] MEDS: Metoprolol XL (24 HR) Succ 25 MG TAB.ER.24H PO SCH (08:45)
[2017-11-24] MEDS ORDERED: Azithromycin 250 MG TABLET PO SCH (09:00)
--- NOTE | 2017-11-24 09:52 | Internal Med Progress Note ---
Date of Encounter: 11/24/17 Time of Encounter: 08:30 - Assessment and plan (1) Pneumonia Current Visit: Yes Status: Acute Assessment and plan: Right lower lobe pneumonia seen on imaging - Concerns for aspiration - Continue IV azithromycin and ceftriaxone - Respiratory status stable today, no oxygen requirements. - Plan to continue outpatient antibiotics. Qualifiers: Pneumonia type: aspiration pneumonia Aspiration pneumonia type: unspecified Laterality: right Lung location: unspecified part of lung Qualified Code(s): J69.0 - Pneumonitis due to inhalation of food and vomit (2) Diverticulitis Current Visit: Yes Status: Acute Assessment and plan: Patient tolerated clear liquids yesterday and some regular diet this morning. - Continues to have some abdominal pain but having bowel movements 3, denies blood this morning - Flagyl and Rocephin day 4, transition to oral antibiotics today - Reevaluate this afternoon possible discharge if symptoms improve. - Follow up with outpatient surgical services with Dr. Jeong for potential surgical option. (3) Partial small bowel obstruction Current Visit: Yes Status: Acute Assessment and plan: Patient tolerating advances in diet. - Continues to have Bowel movements and improvement in abdominal distension - Surgery following, will follow in the outpatient setting for possible surgical intervention. (4) JALYN (acute kidney injury) Current Visit: Yes Status: Resolved Assessment and plan: Patient presented with JALYN in the setting of diverticulitis and partial small bowel obstruction - Resolved with IV fluids continue to monitor symptoms. (5) Multiple myeloma Current Visit: No Status: Chronic Assessment and plan: Follow-up with outpatient oncology Qualifiers: Multiple myeloma remission status: in remission Qualified Code(s): C90.01 - Multiple myeloma in remission (6) Hematochezia Current Visit: Yes Status: Acute Assessment and plan: Patient was having bleeding from rectum -No current episodes - possible from diverticulitis vs. bleeding hemorrhoids (7) DVT prophylaxis Current Visit: Yes Status: Acute Assessment and plan: Subqutaneous heparin 5000units Q8hrs. - Time Spent With Patient Total time spent is greater than 50% in coordination of care (as documented) at patient's floor/unit and/or counseling patient: - Subjective Interval history: Mr. Sidhu 61yo male has been seen and evaluated patient bedside this morning, he is alert, awake, oriented 3 in no acute distress. He states these have some abdominal discomfort described as diffuse but improvement in his abdominal bloating. He has tolerated some of his breakfast without nausea or vomiting. He has had 3 bowel movements; 1 described as loose and 2 well formed. He denies any blood per rectum, fevers, chills, diaphoresis, chest pain or shortness of breath. He denies any worsening of his symptoms but did need some pain medications this morning for his abdominal pain. Agreeable for reevaluation and attempt to eat lunch today. - Constitutional Vitals: Temp Pulse Resp BP Pulse Ox 98.1 F 74 18 130/78 96 11/24/17 07:21 11/24/17 07:21 11/24/17 07:21 11/24/17 07:21 11/24/17 07:21 General appearance: Present: A&O X 3, pleasant, no acute distress Exam: General: Patient alert, awake, oriented 3, interactive, in no acute distress HEENT: Normocephalic, atraumatic, pupils equal reactive to light, neck supple trachea midline no palpable lymphadenopathy, no thyromegaly. Chest: Symmetric bilateral correlating with respiratory effort, effort nonlabored. Cardiac: Regular rate and rhythm, positive S1 and S2. no bruits appreciated bilateral carotids, Radial pulses 2+ bilateral, posterior tibial and dorsal pedal pulses 2+ bilateral. Respiratory: Clear to auscultation all lung davalos Abdomen: Distended, diffuse tenderness with tympany to the epigastric cavity, positive bowel sounds, no palpable masses appreciated on examination Extremities: Symmetric bilateral, bilateral lower extremities without erythema or edema patient moving all 4 extremities spontaneously. Neurologic: No focal deficits appreciated on examination. Face symmetric, muscle strength symmetric bilateral upper and lower extremities. Internal Medicine: Result - Labs CBC & Chem 7: 11/22/17 05:41 11/22/17 05:41 - ABG Interpretation ABG results: PT/INR, D-dimer PT 13.5 Seconds (9.4-12.1) H 11/20/17 23:52 - VTE Documentation of Mechanical Device: Intermittent pneumatic compression device Consult Discharge Plan - Plan Referrals: Carlton Arce DO [Non-Partnered Physician] -
[2017-11-24 14:41] VITALS: BP 150/88
--- NOTE | 2017-11-24 15:28 | Discharge Summary ---
<Hans Palacios - Last Filed: 11/24/17 15:26> Orders not resulted at time of discharge: Pending orders 11/25/17 04:00 CBC [Complete Blood Count] [HEME] AM 0400 CMP [Comprehensive Metabolic Panel] AM 0400 Date of Encounter: 11/24/17 Time of Encounter: 15:26 - Discharge Diagnosis (1) Pneumonia Priority: Primary Status: Acute Qualifiers: Pneumonia type: aspiration pneumonia Aspiration pneumonia type: unspecified Laterality: right Lung location: unspecified part of lung Qualified Code(s): J69.0 - Pneumonitis due to inhalation of food and vomit (2) Diverticulitis Priority: Primary Status: Acute (3) Partial small bowel obstruction Priority: Primary Status: Acute (4) JALYN (acute kidney injury) Priority: Secondary Status: Resolved (5) Multiple myeloma Priority: Secondary Status: Chronic Qualifiers: Multiple myeloma remission status: in remission Qualified Code(s): C90.01 - Multiple myeloma in remission (6) Hematochezia Priority: Secondary Status: Acute (7) DVT prophylaxis Priority: Secondary Status: Acute Hospital course: Mr. Sidhu is a 61 year old male with history of HTN, multiple myeloma, GERD, and diverticulitis who presents with chief complaints of bilateral lower abdominal pain for the past 3 days . Upon presentation he was noted to be tachycardic but sinus. Laboratory workup showed mild leukocytosis and mildly elevated creatinine above baseline. Lactic acid was normal. Imaging studies showed sigmoid diverticulitis as well as partial small bowel obstruction versus ileus. The patient was given IV fluids in the ED as well as Cipro and Flagyl before we were called to admit the patient. General surgery evaluated Mr. Sidhu who determined that he was not in need of surgery at this time. Recommended bowel rest, supportive care and pain control. There was concern for RLL PNA and he was switched to Azithromycin, Cefdinir and flagyl. Clinically he improved through his hospital stay with improvement in his abdominal pain, decrease in abdominal distension, bowel movements and tolerating advances in his diet. Surgery recommended follow up with possible partial colectomy in 8wks post discharge. He was seen and evaluated on 11/24 and deemed stable for discharge with scripts to finish PO antibiotics and follow up with general surgery. He is agreeable to this plan. - Time Spent with Patient Total time spent providing and/or coordinating discharge services: - Discharge Medications Prescriptions: Azithromycin [Zithromax] 500 mg PO DAILY 1 Days #2 tablet Cefdinir [Omnicef] 300 mg PO BID 6 Days #12 capsule metroNIDAZOLE [Flagyl] 500 mg PO TID 6 Days #18 tablet Home Medications: Calcium Carbonate [Tums] 500 mg PO TID #90 tab.chew 09/07/15 [Rx] Metoprolol Succinate 25 mg PO DAILY 09/05/16 [History] Ascorbic Acid [Vitamin C] 500 mg PO DAILY #30 tablet 10/31/16 [Rx] Prochlorperazine Maleate [Compazine] 10 mg PO Q6HR PRN #30 tablet 10/31/16 [Rx] Pantoprazole Sodium [Protonix] 1 tab PO DAILY #90 tablet.dr 01/21/17 [Rx] HYDROcodone/Acet 5/325 mg [[place] 5-325 mg] 1 tab PO Q6H PRN 07/18/17 [History] [place]-3 Fatty Acids [Fish Oil] 300 mg PO DAILY 07/18/17 [History] Cyanocobalamin (Vitamin B-12) [Vitamin B12] 1,000 mcg PO Q48H 11/21/17 [History] Docusate [Colace] 100 mg PO BID PRN 11/21/17 [History] Ferrous Sulfate [Iron] 1 tab PO Q48H 11/21/17 [History] Azithromycin [Zithromax] 500 mg PO DAILY 1 Days #2 tablet 11/24/17 [Rx] Cefdinir [Omnicef] 300 mg PO BID 6 Days #12 capsule 11/24/17 [Rx] metroNIDAZOLE [Flagyl] 500 mg PO TID 6 Days #18 tablet 11/24/17 [Rx] Allergies/Adverse Reactions: 3 Allergy/AdvReac Type Severity Reaction Status Date / Time Penicillins [PCN] Allergy Hives Verified 11/20/17 23:34 Date of admission: 11/21/17 04:44 Primary care physician: PCP NONE Discharging clinician: Hans Palacios Anticipated date of discharge: 11/24/17 - Constitutional Vitals: Temp Pulse Resp BP Pulse Ox 97.9 F 78 18 150/88 98 11/24/17 14:39 11/24/17 14:39 11/24/17 14:39 11/24/17 14:39 11/24/17 14:39 General appearance: Present: A&O X 3, pleasant, no acute distress Exam: General: Patient alert, awake, oriented 3, interactive, in no acute distress HEENT: Normocephalic, atraumatic, pupils equal reactive to light, neck supple trachea midline no palpable lymphadenopathy, no thyromegaly. Chest: Symmetric bilateral correlating with respiratory effort, effort nonlabored. Cardiac: Regular rate and rhythm, positive S1 and S2. no bruits appreciated bilateral carotids, Radial pulses 2+ bilateral, posterior tibial and dorsal pedal pulses 2+ bilateral. Respiratory: Clear to auscultation all lung davalos Abdomen: Distended, diffuse tenderness with tympany to the epigastric cavity, positive bowel sounds, no palpable masses appreciated on examination Extremities: Symmetric bilateral, bilateral lower extremities without erythema or edema patient moving all 4 extremities spontaneously. Neurologic: No focal deficits appreciated on examination. Face symmetric, muscle strength symmetric bilateral upper and lower extremities. - Patient Status Disposition: Home, Self-Care Condition: Fair Overall status at discharge: patient is progressing back to baseline - Discharge Instructions Instructions: Diverticulitis (DC), Pneumonia (DC) Follow Up With: Carlton Arce DO [Non-Partnered Physician] - Additional Instructions: Take prescriptions as prescribed Follow up with PCP in the next 3-5 days Follow up with general surgery - Diet and Activity Activity: increase activity as tolerated Diet: advance to your usual diet - VTE Documentation of Mechanical Device: Intermittent pneumatic compression device <Thomas Koroma - Last Filed: 11/24/17 16:06> Orders not resulted at time of discharge: Pending orders 11/25/17 04:00 CBC [Complete Blood Count] [HEME] AM 0400 CMP [Comprehensive Metabolic Panel] AM 0400 Date of Encounter: 11/24/17 - Discharge Diagnosis (1) Hematochezia Status: Acute (2) Multiple myeloma Status: Chronic Qualifiers: Multiple myeloma remission status: unspecified Qualified Code(s): C90.00 - Multiple myeloma not having achieved remission (3) Partial small bowel obstruction Status: Acute (4) Diverticulitis Status: Acute (5) JALYN (acute kidney injury) Status: Resolved (6) DVT prophylaxis Status: Acute (7) Pneumonia Status: Acute Qualifiers: Pneumonia type: aspiration pneumonia Aspiration pneumonia type: unspecified Laterality: right Lung location: unspecified part of lung Qualified Code(s): J69.0 - Pneumonitis due to inhalation of food and vomit Hospital course: Mr. Sidhu is a 61 year old male - Time Spent with Patient Total time spent providing and/or coordinating discharge services: Date of admission: 11/21/17 04:44 Primary care physician: PCP NONE - Constitutional Vitals: Temp Pulse Resp BP Pulse Ox 97.9 F 78 18 150/88 98 11/24/17 14:39 11/24/17 14:39 11/24/17 14:39 11/24/17 14:39 11/24/17 14:39 - Attending Attestation Seen and examined independently at the bedside. 61 M admitted for diverticulitis , as well as RLL PNA, suspected to be due to aspiration. He has been tolerating orally regular diet, without abdominal pain, he is having normal BM. Surgery signed off, to see him as out-patient. Physical exam is unremarkable, and patient is clinically stable to be discharged home on oral antibiotics.
== END 2017-11-24 16:30 | disposition home or self-care (01) | DRG 244 ==
LOC: EMEROO 23:18 → 3ANU 11-21 04:44
PROVIDERS: ADMIT Family Medicine; ATTEND Internal Medicine